=== PATIENT | female | born 1980 | race Caucasian/White ===

== ENCOUNTER 2025-03-26 09:57 | Emergency (ER) | payer MEDICAID ==
[~2025-03-26] VITALS: Ht 157.5 cm; Wt 103.9 kg
--- OUTSIDE RECORDS SUMMARY | 2025-03-26 10:04 | XMS ---
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 Events currently on file CRITERIA MET - [facility] - 2 Visits in 30 Days - [facility] - 3 Facilities in 90 Days CARE PROVIDERS [facility], [facility]: Primary Care 01/26/2024-Current HEALTHCARE - [facility] PHONE: Unknown JONNA MEHTA Nurse Practitioner: 01/03/2017-Current PHONE: Unknown SHAVON PEREZ [facility] Current PHONE: Unknown [facility] PHONE: [phone] Care Guidelines exist for the following facilities: [facility] ( 07/29/2016 ) [facility] ( 05/01/2015 ) Bre VISIT COUNT (12 MO.) 5 [facility] 4 [facility] 2 [facility] [place] TOTAL 12 NOTE: Visits indicate total known visits. ED/UCC VISIT TRACKING (12 MO.) 03/26/2025 09:58 [facility] [place] TYPE: Emergency COMPLAINT: - SYNCOPE 03/25/2025 20:22 [facility] [place] TYPE: Emergency COMPLAINT: - ABDOMINAL PAIN 03/21/2025 07:42 [facility] [place] TYPE: Emergency DIAGNOSES: - Civilian activity done for income or pay - Pain in right knee - R KNEE PAIN [facility]25 16:[facility] [place] [facility] DIAGNOSES: - Unspecified internal derangement of right knee - righ knee pain 03/10/2025 15:39 [facility] TYPE: Emergency DIAGNOSES: - Paresthesia of skin - Feet numb \T\ tingling, dizzy, leg pain x weeks 08/12/2024 19:34 [facility] TYPE: Emergency DIAGNOSES: 57921. Right arm pain 76701. Unspecified injury of right shoulder and upper arm, initial encounter 05/24/2024 00:40 [facility] TYPE: Emergency DIAGNOSES: - Hypokalemia - Left lower quadrant pain - Nausea with vomiting, unspecified - Blood in Emesis 05/23/2024 21:38 [facility] TYPE: Emergency DIAGNOSES: 00306. TRIAGE AMR 343 43F N/V, seen yesterday for same 05/23/2024 18:41 [facility] TYPE: Emergency DIAGNOSES: - Abdominal Pain 05/23/2024 16:20 [facility] [place] TYPE: Emergency COMPLAINT: - abd pain, throwing up blood DIAGNOSES: - abd pain, throwing up blood 05/22/2024 16:13 [facility] TYPE: Emergency DIAGNOSES: 03141. AMR 347. 43 y/o F. Abd px/N/V. VSS. 100mcg fentanyl. 09249. Generalized abdominal pain 12817. Nausea with vomiting, unspecified 04/23/2024 12:08 [facility] TYPE: Emergency DIAGNOSES: 25052. AMR 312 43F N/V abd pain x 3 days HR 108, BP 141/100, 98% RA, IV with fluids running . Diarrhea, unspecified . Vomiting, unspecified INPATIENT VISIT TRACKING (12 MO.) No inpatient visits to display in this time frame [email or web address]
[2025-03-26 10:23] LABS: BASOPHILS 0.3 % (0.1-1.2); EOSINOPHILS 2.2 % (0.7-5.8); HEMATOCRIT 40.1 % (34.1-44.9); HEMOGLOBIN 13.1 g/dL (11.2-15.7); LYMPHOCYTES 6.3 % (19.3-51.7); MCH 28.2 PG (25.6-32.2); MCHC 32.7 g/dL (32.2-35.5); MCV 86.4 fL (79.4-94.8); MONOCYTES 9.3 % (4.7-12.5); NEUTROPHILS 81.4 % (34.0-71.1); PLATELET COUNT 247 K/uL (182-369); RBC 4.64 M/uL (3.93-5.22)
[2025-03-26] MEDS ORDERED: CETIRIZINE HCL10 MG PO (10:25)
[2025-03-26] MEDS ORDERED: TRAMADOL HCL50 MG PO (10:25)
[2025-03-26] MEDS ORDERED: FEROSUL325 MG PO (10:25)
[2025-03-26] MEDS ORDERED: BACLOFEN10 MG PO (10:25)
[2025-03-26] MEDS ORDERED: PANTOPRAZOLE SO20 MG PO (10:25)
[2025-03-26] MEDS ORDERED: PREGABALIN150 MG PO (10:25)
[2025-03-26] MEDS ORDERED: SODIUM CHLORIDE 0.9% 1,000 ML IV ONE (10:30)
[2025-03-26] MEDS ORDERED: ondansetron HCL 4 MG/2 ML VIAL IV ONE ×3 (10:30→12:45)
[2025-03-26 10:33] LABS: ALBUMIN 3.2 g/dL (3.4-5.0); ALBUMIN/GLOBULIN RATIO 0.63 (1.1-2.4); ANION GAP 16.3 (7-21); BILIRUBIN, TOTAL 1.2 mg/dL (0.2-1.0); BUN/CREATININE RATIO 7.69 (6.0-28.6); CALCIUM 9.4 mg/dL (8.5-10.1); CREATININE, SERUM 1.04 mg/dL (0.55-1.02); POTASSIUM 3.3 mmol/L (3.5-5.1); PROTEIN, TOTAL 8.3 g/dL (6.4-8.2)
[2025-03-26 12:19] LABS: BILIRUBIN, URINE NEGATIVE (negative); BLOOD/HGB, URINE MODERATE (Negative); KETONE, URINE NEGATIVE (Negative); LEUK ESTERASE, URINE MODERATE (negative); NITRITE, URINE POSITIVE (negative); PH, URINE 6.5 (5-7)
[2025-03-26 12:25] LABS: BACTERIA, URINE 2+ /hpf (negative); CASTS, URINE NONE SEEN \\lpf; COLLECTION TYPE, URINE CLEAN CATCH; CRYSTALS, URINE NONE SEEN (0-1+); EPITHELIAL CELLS, URINE SQUAMOUS 1+ /lpf (0-1+); RED BLOOD CELLS, URINE 0-1 /hpf (0-5); REFLEX CULTURE, URINE Yes (No); WHITE BLOOD CELLS, URINE >50 /HPF (0-5)
[2025-03-26] MEDS ORDERED: CEPHALEXIN500 M1 PO (13:24)
[2025-03-26 13:51] VITALS: BP 126/86
--- NOTE | 2025-03-29 10:09 | EKG ---
[facility] [address] [place] [address] Signed Normal sinus rhythm Low voltage QRS Cannot rule out Anterior infarct , age undetermined Abnormal ECG Confirmed by Miko Savage DO ([id number]) on 03/29/2025 10:09:31 AM Electronically Signed By: MIKO SAVAGE DO 03/29/25 1009 PATIENT NAME: CHRISTIN PERDOMO Electrocardiogram DATE OF : 82 PHYSICIAN: MIKO SAVAGE DO REPORT #: [id number] REPORT IS CONFIDENTIAL AND NOT TO BE RELEASED WITHOUT AUTHORIZATION
== END 2025-03-26 13:53 | disposition home or self-care (01) ==
LOC: ED 09:57
PROVIDERS: Emergency Medicine
DX: N39.0 Urinary tract infection, site not specified (principal); Z88.1 Allergy status to other antibiotic agents; Z88.5 Allergy status to narcotic agent; Z88.8 Allergy status to other drugs, medicaments and biological substances; Z79.899 Other long term (current) drug therapy
CPT/HCPCS: 36415; 80053; 81001; 84703; 85025; 87077; 87088; 87186; 93005; 93010; 96361; 96374; 96376; 99284-25; J2405; J7030